=== PATIENT | female | born 1975 | race Caucasian/White ===

== ENCOUNTER 2022-12-04 08:51 | Emergency (ER) | payer OTHER | END 2022-12-04 09:57 | disposition home or self-care (01) | LOC: JP.ED 08:51 | DX: S82.831A Other fracture of upper and lower end of right fibula, initial encounter for closed fracture (principal); S93.401A Sprain of unspecified ligament of right ankle, initial encounter; Z88.5 Allergy status to narcotic agent; Z72.0 Tobacco use; X50.1XXA Overexertion from prolonged static or awkward postures, initial encounter | CPT/HCPCS: 73610-26-RT; 73610-RT; 99282; 99283 ==